=== PATIENT | male | born 1970 | race Caucasian/White ===

== ENCOUNTER 2022-04-21 07:26 | Inpatient (IN) ==
[2022-04-21 07:55] VITALS: BMI 26.1
[2022-04-21] MEDS ORDERED: TORADOL 30 MG VIAL ONE (08:30)
[2022-04-21] MEDS ORDERED: TORADOL 30 MG VIAL IVP ONE (08:31)
--- NOTE | 2022-04-21 08:31 | DR.EXTPAIN ---
HPI Time seen Time Seen by Provider: 04/21/22 08:20 PCP Primary Care Physician: Greg Ferrell HPI Comment HPI Comment: PAIN, SWELLING AND REDNESS RIGHT ELBOW TIMES FIVE DAYS. STARTED AFTER IV WAS PLACE IN AREA. THE IV INFITRATED WELL. Complaint/Symptoms Chief Complaint Doctor Comments: REDNESS AND SWELLING RIGHT ELBOW TIMES 5 DAYS. Chief Complaint:: Was in [place] for hypotension and received an iv was inserted in right in er that was started to hurt saturday night and told staff nurse that it hurt, and when removed it had puss upon removal. Patient was discharged saturday and right ac was jocelin and painful and then saturday the pain increased up entire arm, with chills, diarrhea, reddness to upper arm with a knot. Patient noted after his shower to have green drainage at infected site when wiped with cotton. COVID-19 Coronavirus risk:travel/contact w/high risk person: No Has patient experienced Coronavirus symptoms: No Nurses notes reviewed Nurses Notes Review: Yes Source History Provided: Patient Mode of arrival Mode of Arrival: In Arms Timing Onset of Chief Complaint: 04/16/22 Associated signs and symptoms Associated Signs and Symptoms: Pain and Swelling (REDNESS ELBOW AND ARM.) PMH PMH Past Medical History: Yes Past Medical History: Arthritis, CVA, GERD and Hypertension Past Medical History Comment: Maner Disease, hital hernia Past Surgical History: Yes Surgical History: Cholecystectomy Family History History of Family Medical Conditions: Yes Family Medical History: Diabetes Mellitus and Hypertension Social History Does patient currently use any type of tobacco product: Yes Have you used tobacco products in the last 12 months: Yes Type of Tobacco Use: Cigarettes How many years tobacco product used: 40 Does any household member use tobacco: Yes Alcohol Use: DAILY Do you use any recreational Drugs:: No Lives With: Significant Other Lives Where: Home Travel Risk Coronavirus risk:travel/contact w/high risk person: No Has patient experienced Coronavirus symptoms: No Infectious screening In the last 2 months have you had wt loss of >10#?: NO Have you had fever, night sweats or hemotysis?: No Have you traveled outside the country in the last 6 months?: No Isolation: Contact ROS Review of Systems Constitutional: Fever (AT HOME.); negative Weakness or Fatigue Eyes: No Symptoms Reported ENTM: negative Nose Discharge or Nose Congestion Respiratoy: No Symptoms Reported; negative Moist Cough, Short of Breath or Wheezing Cardiovascular: No Symptoms Reported; negative Chest Pain Gastrointestinal/Abdominal: No Symptoms Reported; negative Abdominal Pain, Diarrhea, Nausea or Vomiting Genitourinary: No Symptoms Reported; negative Dysuria Neurological: No Symptoms Reported; negative Headache, Weakness or Dizziness Musculoskeletal: Arm and Elbow Integumentary: Other (RIGHT ELBOW SWOLLEN AND RED AND TENDERINVOLVING DISTAL ARM AND PROXIMAL FOREARM. AREA IS WARM TO TOUCH.) Hematologic/Lymphatic: No Symptoms Reported; negative Easy Bruising or Swollen Glands (RT AXILLAR NODES NOT ENLARGE OR TENDER.) Endocrine: No Symptoms Reported; negative Increased Thirst or Increased Urine Psychiatric: No Symptoms Reported All Other Systems: Reviewed and Negative PE Vital Signs Vitals: Temperature 97.7 F Pulse Rate 77 Respiratory Rate 20 Blood Pressure [Left Arm] 169/82 Blood Pressure 180/86 O2 Sat by Pulse Oximetry 98 General Limitations: No Limitations General Appearance: Alert and In No Apparent Distress Head Head Exam: Normal Inspection Eyes Eye exam: Normal Appearance ENT ENT Exam: Normal Exam, Normal Oropharynx, Normal External Ear Exam and TM's Normal Bilaterally Neck Neck Exam: Normal Inspection and Trachea Midline; negative Tenderness Chest Chest Inspection: Normal Inspection and Symmetric Chest Wall Rise; negative Tenderness Respiratory Respiratory Exam: negative Accessory Muscle Use, Chest Wall Tenderness or Respiratory Distress Cardiovascular Cardiovascular Exam: Regular Rate, Normal Rhythm and Normal Heart Sounds; negative Systolic Murmur or Diastolic Murmur Abdominal Exam Abdominal Exam: Normal Inspection, Normal Bowel Sounds and Soft; negative Te nderness Extremities Extremities Exam: Tenderness (swelling and tenderness right elbow. skin over elbow warm.) Back Back Exam: Normal Inspection and (R) Sciatic Notch Tenderness (LOWER BACK) Neurological Neurological Exam: Alert and Oriented X3; negative Motor Sensory Deficit Psychiatric Psychiatric Exam: Normal Affect and Normal Mood Skin Skin Exam: Other (SWELLING, REDNESS AND TENDERNESS RIGHT ELBOW.) MDM Differential Diagnosis Differential Diagnosis: Sprain (CELLULITIS RIGHT ELBOW.) COURSE Treatment Treatment: SEE ORDERS DONE WHILE PATIENT WAS IN ER. Consultation Consultation Comments: DISCUSSED PATIENT WITH DR. OLSON AND HE WILL ADMIT PATIENT. Education/Counseling Education/Counseling: Patient Educated On: Diagnosis ROR Labs Reviewed Laboratory Results Reviewed?: Yes Result Diagrams: 04/24/22 06:06 04/23/22 18:43 Laboratory: 04/21/22 09:10 Blood Blood Culture - Preliminary 04/21/22 09:00 Blood Blood Culture - Preliminary WBC 6.6 X10^3/uL (3.6-10.0) 04/21/22 08:25 RBC 3.82 X10^6/uL (4.7-6.0) L 04/21/22 08:25 Hgb 12.8 g/dL (13.5-18.0) L 04/21/22 08:25 Hct 35.8 % (42.0-54.0) L 04/21/22 08:25 MCV 93.7 fL (80.0-100.0) 04/21/22 08:25 MCH 33.6 pg (27.0-34.0) 04/21/22 08:25 MCHC 35.8 g/dL (33.0-35.0) H 04/21/22 08:25 RDW 12.9 % (11.6-16.5) 04/21/22 08:25 Plt Count 177 X10^3/uL (150.0-450.0) 04/21/22 08:25 MPV 8.4 fL (7.4-11.0) 04/21/22 08:25 Neut % (Auto) 75.9 % (42.0-75.0) H 04/21/22 08:25 Lymph % (Auto) 11.8 % (21.0-51.0) L 04/21/22 08:25 [place] % (Auto) 10.7 % (0.0-13.0) 04/21/22 08:25 Eos % (Auto) 1.1 % (0.9-2.9) 04/21/22 08:25 Baso % (Auto) 0.5 % (0.2-1.0) 04/21/22 08:25 Neut # (Auto) 5.0 x10^3/uL (2.2-4.8) H 04/21/22 08:25 Lymph # (Auto) 0.8 X10^3/uL (1.3-2.9) L 04/21/22 08:25 [place] # (Auto) 0.7 x10^3/uL (0.3-0.8) 04/21/22 08:25 Eos # (Auto) 0.1 x10^3/uL (0.0-0.2) 04/21/22 08:25 Baso # (Auto) 0.0 X10^3/uL (0.0-0.1) 04/21/22 08:25 Absolute Nucleated RBC 0.1 /100WBC 04/21/22 08:25 PT 16.4 SECONDS (11.8-14.3) 04/21/22 08:25 INR Target Range - 04/21/22 08:25 INR 1.37 (0.8-1.3) H 04/21/22 08:25 APTT 28.4 SECONDS (22.9-36.5) 04/21/22 08:25 PTT Comment - 04/21/22 08:25 Sodium 138 mmol/L (136-145) 04/21/22 08:25 Corrected Sodium TNP 04/21/22 08:25 Potassium 3.9 mmol/L (3.5-5.1) 04/21/22 08:25 Chloride 102 mmol/L (98-107) 04/21/22 08:25 Carbon Dioxide 26.1 mmol/L (21-32) 04/21/22 08:25 BUN 15 mg/dL (7-18) 04/21/22 08:25 Creatinine 1.13 mg/dL (0.70-1.30) 04/21/22 08:25 Est GFR (MDRD) Af Amer > 60 (>60) 04/21/22 08:25 Est GFR (MDRD) Non-Af > 60 (>60) 04/21/22 08:25 Glucose 104 mg/dL (65-99) H 04/21/22 08:25 Calcium 9.0 mg/dL (8.5-10.1) 04/21/22 08:25 Corrected Calcium TNP 04/21/22 08:25 Total Bilirubin 0.60 mg/dL (0.2-1.0) 04/21/22 08:25 AST 28 Units/L (15-37) 04/21/22 08:25 ALT 40 Units/L (12-78) 04/21/22 08:25 Alkaline Phosphatase 79 Units/L (46-116) 04/21/22 08:25 Total Protein 7.1 g/dL (6.4-8.2) 04/21/22 08:25 Albumin 3.7 g/dL (3.4-5.0) 04/21/22 08:25 Globulin 3.4 g/dL (2.5-4.5) 04/21/22 08:25 Albumin/Globulin Ratio 1.1 Ratio (1.1-2.1) 04/21/22 08:25 Specimen Type Clean catch urine 04/21/22 08:35 Urine Color Chana (YELLOW) 04/21/22 08:35 Urine Appearance Slightly hazy (CLEAR) 04/21/22 08:35 Urine pH 6.5 (5.0 - 8.0) 04/21/22 08:35 Ur Specific [place] 1.015 (1.000-1.030) 04/21/22 08:35 Urine Protein 2+ (NEGATIVE) 04/21/22 08:35 Urine Glucose (UA) Negative (NEGATIVE) 04/21/22 08:35 Urine Ketones 1+ (NEGATIVE) 04/21/22 08:35 Urine Blood 2+ (NEGATIVE) 04/21/22 08:35 Urine Nitrite Negative (NEGATIVE) 04/21/22 08:35 Urine Bilirubin 1+ (NEGATIVE) 04/21/22 08:35 Urine Urobilinogen 2+ (NORMAL) 04/21/22 08:35 Ur Leukocyte Esterase 1+ (NEGATIVE) 04/21/22 08:35 Urine RBC 0-2 /HPF (0-3) 04/21/22 08:35 Urine WBC 0-2 /HPF (0-5) 04/21/22 08:35 Ur Squamous Epith Cells Few /HPF (NEGATIVE) 04/21/22 08:35 Urine Bacteria Trace /HPF (NEGATIVE) 04/21/22 08:35 Urine Mucus Few /HPF (NEGATIVE) 04/21/22 08:35 Ur Culture Indicated? No/not indicated 04/21/22 08:35 XRAY XRAY Interpreted by: Radiologist (REPORT VENOUS DOPPLER NOTED.) Opioid Opioid Risk Tool Age (Farrukh box if 16-45): No History of Preadolescent Sexual Abuse: No Total: 0 Total Score Risk Category: Low Risk Copyright: Jovani ZAIDI predicting aberrant behaviors Discharge Plan Diagnosis Discharge Problem: Cellulitis of right elbow, Acute cephalic vein thrombosis Discharge Plan Patient Disposition: 09 ADMITTED INPATIENT Condition: Stable
[2022-04-21] MEDS ORDERED: NS 1,000 ML IV 1,000 ML ONE (08:43)
[2022-04-21 08:44] LABS: BASOPHILS % (AUTO) 0.5 % (0.2-1.0); EOSINOPHILS # (AUTO) 0.1 x10^3/uL (0.0-0.2); EOSINOPHILS % (AUTO) 1.1 % (0.9-2.9); HEMATOCRIT 35.8 % (42.0-54.0); HEMOGLOBIN 12.8 g/dL (13.5-18.0); LYMPHOCYTES # (AUTO) 0.8 X10^3/uL (1.3-2.9); LYMPHOCYTES % (AUTO) 11.8 % (21.0-51.0); MEAN CORPUSCULAR HEMOGLOBIN 33.6 pg (27.0-34.0); MEAN CORPUSCULAR HGB CONC 35.8 g/dL (33.0-35.0); MEAN CORPUSCULAR VOLUME 93.7 fL (80.0-100.0); MEAN PLATELET VOLUME 8.4 fL (7.4-11.0); MONOCYTES # (AUTO) 0.7 x10^3/uL (0.3-0.8); MONOCYTES % (AUTO) 10.7 % (0.0-13.0); NEUTROPHILS % (AUTO) 75.9 % (42.0-75.0); RED BLOOD COUNT 3.82 X10^6/uL (4.7-6.0); RED CELL DISTRIBUTION WIDTH 12.9 % (11.6-16.5); WHITE BLOOD COUNT 6.6 X10^3/uL (3.6-10.0)
[2022-04-21] MEDS: NS 1,000 ML IV 1,000 ML IV SCH ×2 (08:50→18:10)
[2022-04-21 08:56] LABS: BILIRUBIN,URINE 1+ (NEGATIVE); BLOOD/HEMOGLOBIN,URINE 2+ (NEGATIVE); GLUCOSE, URINE NEGATIVE (NEGATIVE); KETONES,URINE 1+ (NEGATIVE); LEUKOCYTE ESTERASE ,URINE 1+ (NEGATIVE); NITRITES,URINE NEGATIVE (NEGATIVE); PH,URINE 6.5 (5.0 - 8.0); PROTEIN,URINE 2+ (NEGATIVE); UROBILINOGEN,URINE 2+ (NORMAL)
[2022-04-21 08:57] LABS: ALANINE AMINOTRANSFERASE 40 Units/L (12-78); ALBUMIN 3.7 g/dL (3.4-5.0); ALKALINE PHOSPHATASE 79 Units/L (46-116); ASPARTATE AMINO TRANSFERASE 28 Units/L (15-37); BLOOD UREA NITROGEN 15 mg/dL (7-18); CARBON DIOXIDE 26.1 mmol/L (21-32); CHLORIDE 102 mmol/L (98-107); CREATININE 1.13 mg/dL (0.70-1.30); SODIUM 138 mmol/L (136-145); TOTAL PROTEIN 7.1 g/dL (6.4-8.2); eGFR NON BLACK RACES > 60 (>60)
[2022-04-21 09:14] LABS: APPEARANCE,URINE SLIGHTLY HAZY (CLEAR); COLOR,URINE AMBER (YELLOW)
[2022-04-21 09:15] LABS: BACTERIA,URINE TRACE /HPF (NEGATIVE); RBC,URINE 0-2 /HPF (0-3); SQUAMOUS EPITHELIAL CELL,UR FEW /HPF (NEGATIVE)
[2022-04-21] MEDS ORDERED: VANCOMYCIN IV *PREMIX 1 G/200 ML BAG 1 G/200 ML PIGGYBACK IV SCH (10:38)
[2022-04-21 10:51] LABS: INR 1.37 (0.8-1.3)
--- NOTE | 2022-04-21 10:53 | VAS ---
HISTORY: Extremity pain, swelling, and edemaStudy: [Right] upper extremity Doppler venous ultrasound.Comparison: [none].TECHNIQUE: Multiple phillips scale and color flow Doppler images of the deep venous system were obtained of the right upper extremity.FINDINGS: The deep venous system of the [right] upper extremity evaluated from the level of the internal jugular vein through the [radial and ulnar veins]. Normal color flow and augmentation can be observed. In addition, normal compression is seen throughout the upper extremity deep venous system. There is a residual thrombus seen within the right cephalic vein in the mid/distal humerus in the region of concern.IMPRESSION:The deep venous system of the [right] upper extremity evaluated from the level of the internal jugular vein through the [radial and ulnar veins]. Normal color flow and augmentation can be observed. In addition, normal compression is seen throughout the upper extremity deep venous system. There is a residual superficial venous thrombus seen within the right cephalic vein in the mid/distal humerus in the region of concern.Electronically signed by: MAREN DÍAZ III (Apr 21, 2022 10:51:20)
[2022-04-21] MEDS ORDERED: HEPARIN SODIUM IN D5W 25,000 UNITS/500 ML BAG ONE (11:02)
[2022-04-21] MEDS ORDERED: VANCOMYCIN HCL ONE (11:02)
[2022-04-21] MEDS ORDERED: VANCOMYCIN IV *PREMIX 1 G/200 ML BAG 1 G/200 ML PIGGYBACK IV ONE (11:06)
[2022-04-21] MEDS ORDERED: NORCO 10/325 TAB ONE (11:18)
[2022-04-21] MEDS: NORCO 10/325 TAB PO PRN ×3 (11:22→21:33)
[2022-04-21] MEDS ORDERED: HEPARIN SODIUM INJ 5000 UNITS IVP ONE ×2 (11:47→16:56)
[2022-04-21] MEDS ORDERED: HEPARIN SODIUM INJ 5000 UNITS ONE ×2 (11:49→17:00)
[2022-04-21] MEDS: HEPARIN SODIUM IN D5W 25,000 UNITS/500 ML BAG IV PRN (11:56)
[2022-04-21] MEDS ORDERED: ZOFRAN TAB 4 MG PO PRN (12:21)
[2022-04-21] MEDS: TORADOL 30 MG VIAL IVP PRN ×2 (17:30→23:23)
[2022-04-21] MEDS: VANCOMYCIN IV *PREMIX 1 G/200 ML BAG 1 G/200 ML PIGGYBACK IV SCH (21:28)
[2022-04-22] MEDS: NORCO 10/325 TAB PO PRN ×5 (02:38→23:50)
[2022-04-22] MEDS: TYLENOL 325 MG TAB PO PRN ×2 (03:26→19:37)
[2022-04-22] MEDS: NS 1,000 ML IV 1,000 ML IV SCH ×3 (04:17→16:25)
[2022-04-22] MEDS: VANCOMYCIN IV *PREMIX 1 G/200 ML BAG 1 G/200 ML PIGGYBACK IV SCH ×3 (04:17→19:37)
[2022-04-22] MEDS: HEPARIN SODIUM IN D5W 25,000 UNITS/500 ML BAG IV PRN ×2 (05:02→22:20)
[2022-04-22 05:03] LABS: ALANINE AMINOTRANSFERASE 29 Units/L (12-78); ALBUMIN 2.7 g/dL (3.4-5.0); ALKALINE PHOSPHATASE 64 Units/L (46-116); ASPARTATE AMINO TRANSFERASE 20 Units/L (15-37); BLOOD UREA NITROGEN 17 mg/dL (7-18); CALCIUM 7.5 mg/dL (8.5-10.1); CARBON DIOXIDE 21.9 mmol/L (21-32); CHLORIDE 103 mmol/L (98-107); COR CA(FOR HYPOALB) 8.5 mg/dL (8.5-10.1); CREATININE 1.34 mg/dL (0.70-1.30); SODIUM 135 mmol/L (136-145); TOTAL PROTEIN 5.7 g/dL (6.4-8.2); eGFR NON BLACK RACES 59 (>60)
[2022-04-22] MEDS: TORADOL 30 MG VIAL IVP PRN ×4 (05:07→22:12)
[2022-04-22 05:19] LABS: BASOPHILS % (AUTO) 0.5 % (0.2-1.0); EOSINOPHILS % (AUTO) 0.1 % (0.9-2.9); HEMATOCRIT 28.7 % (42.0-54.0); HEMOGLOBIN 10.4 g/dL (13.5-18.0); LYMPHOCYTES # (AUTO) 0.4 X10^3/uL (1.3-2.9); MEAN CORPUSCULAR HEMOGLOBIN 33.7 pg (27.0-34.0); MEAN CORPUSCULAR HGB CONC 36.3 g/dL (33.0-35.0); MEAN CORPUSCULAR VOLUME 92.7 fL (80.0-100.0); MEAN PLATELET VOLUME 8.8 fL (7.4-11.0); MONOCYTES # (AUTO) 0.4 x10^3/uL (0.3-0.8); MONOCYTES % (AUTO) 7.2 % (0.0-13.0); NEUTROPHILS # (AUTO) 4.5 x10^3/uL (2.2-4.8); NEUTROPHILS % (AUTO) 84.2 % (42.0-75.0); RED CELL DISTRIBUTION WIDTH 13.1 % (11.6-16.5); WHITE BLOOD COUNT 5.3 X10^3/uL (3.6-10.0)
[2022-04-22] MEDS ORDERED: POTASSIUM CHL 40 MEQ/NS 0.45% 500 ML IV PRN (05:20)
[2022-04-22] MEDS ORDERED: POTASSIUM CHLORIDE LIQ 20 MEQ UDC PO PRN (05:20)
[2022-04-22] MEDS ORDERED: POTASSIUM CHL 60 MEQ/NS 0.45% 500 ML IV PRN (05:20)
[2022-04-22] MEDS ORDERED: KLOR-CON PO PRN (05:20)
[2022-04-22] MEDS ORDERED: MICRO K EXTEN CAP 10 MEQ PO PRN (05:20)
[2022-04-22] MEDS ORDERED: K-RIDER 10 MEQ/NS 100 ML 10 MEQ/100 ML BAG IV PRN (05:20)
[2022-04-22] MEDS: MAGNESIUM SULFATE 1 GRAM/100 mL PREMIX 1 G/100 ML BAG IV PRN ×5 (06:14→20:49)
--- NOTE | 2022-04-22 11:19 | DR.H&P ---
H&P History & Physical for Day of: H&P Date: 04/21/22 Chief Complaint Chief Complaint: Right elbow swelling and redness Allergies Allergies Allergy/AdvReac Type Severity Reaction Status Date / Time No Known Drug Allergies Allergy Verified 12/03/18 08:47 History of Present Illness History of Present Illness: This is a 52-year-old white male who is a patient of Dr. Heri Ferrell. He went to the [facility] emergency department earlier this week on Saturday for a swollen right elbow with redness and pain. He was treated for cellulitis. He reported that he was there for a few nights and they took the IV out Saturday night and pus came out. He reported that the pus was green in color and was discharged home later that day. Since then he has been having increased right elbow pain with swelling and tenderness. He presented to the emergency department this morning [facility] for worsening pain of the right elbow with increasing redness. Ultrasound was done and showed a superficial cephalic vein thrombosis and because of this we elected to go ahead and admitting for treatment with IV heparin and IV vancomycin. White blood cell count was normal on arrival. Past Medical History Past Medical History: Arthritis, CVA, GERD and Hypertension Past Surgical History Surgical History: Cholecystectomy and Other Family History Family Medical History: Diabetes Mellitus, Cancer, [place] and Hypertension Social History Does patient currently use any type of tobacco product: Yes Have you used tobacco products in the last 12 months: Yes Type of Tobacco Use: Cigarettes How many years tobacco product used: 40 Does any household member use tobacco: Yes Alcohol Use: Occasionally Drug Use: None Medications Home Medications: No Known Drug Allergies Allergy (Verified 12/03/18 08:47) CONTINUE taking the following medications albuterol sulfate 90 mcg/actuation aerosol inhaler 2 inh inhalation Q4H PRN 04/21/22 [History] allopurinol 100 mg tablet 100 mg PO QDAY 04/21/22 [History] aspirin 325 mg tablet,delayed release 325 mg PO QDAY 04/21/22 [History] atorvastatin 40 mg tablet 40 mg PO QDAY 04/21/22 [History] gabapentin 300 mg capsule 300 mg PO BID 04/21/22 [History] hydrocodone 5 mg-acetaminophen 325 mg tablet 1 tab PO QID PRN 04/21/22 [History] lisinopril 10 mg tablet 10 mg PO QDAY 04/21/22 [History] meclizine 25 mg tablet 25 mg PO TID PRN 04/21/22 [History] pantoprazole 40 mg tablet,delayed release 40 mg PO BID 04/21/22 [History] tamsulosin 0.4 mg capsule 0.4 mg PO QDAY 04/21/22 [History] tizanidine 2 mg tablet 2 mg PO BID 04/21/22 [History] topiramate 50 mg tablet 50 mg PO HS 04/21/22 [History] Labs Result Diagrams: 04/22/22 04:30 04/22/22 08:25 Labs: 04/21/22 09:10 Blood Blood Culture - Preliminary 04/21/22 09:00 Blood Blood Culture - Preliminary Laboratory WBC 5.3 X10^3/uL (3.6-10.0) 04/22/22 04:30 RBC 3.10 X10^6/uL (4.7-6.0) L 04/22/22 04:30 Hgb 10.4 g/dL (13.5-18.0) L D 04/22/22 04:30 Hct 28.7 % (42.0-54.0) L 04/22/22 04:30 MCV 92.7 fL (80.0-100.0) 04/22/22 04:30 MCH 33.7 pg (27.0-34.0) 04/22/22 04:30 MCHC 36.3 g/dL (33.0-35.0) H 04/22/22 04:30 RDW 13.1 % (11.6-16.5) 04/22/22 04:30 Plt Count 143 X10^3/uL (150.0-450.0) L 04/22/22 04:30 MPV 8.8 fL (7.4-11.0) 04/22/22 04:30 Neut % (Auto) 84.2 % (42.0-75.0) H 04/22/22 04:30 Lymph % (Auto) 8.0 % (21.0-51.0) L 04/22/22 04:30 [place] % (Auto) 7.2 % (0.0-13.0) 04/22/22 04:30 Eos % (Auto) 0.1 % (0.9-2.9) L 04/22/22 04:30 Baso % (Auto) 0.5 % (0.2-1.0) 04/22/22 04:30 Neut # (Auto) 4.5 x10^3/uL (2.2-4.8) 04/22/22 04:30 Lymph # (Auto) 0.4 X10^3/uL (1.3-2.9) L 04/22/22 04:30 [place] # (Auto) 0.4 x10^3/uL (0.3-0.8) 04/22/22 04:30 Eos # (Auto) 0.0 x10^3/uL (0.0-0.2) 04/22/22 04:30 Baso # (Auto) 0.0 X10^3/uL (0.0-0.1) 04/22/22 04:30 Absolute Nucleated RBC 0.0 /100WBC 04/22/22 04:30 PT 16.4 SECONDS (11.8-14.3) 04/21/22 08:25 INR Target Range - 04/21/22 08:25 INR 1.37 (0.8-1.3) H 04/21/22 08:25 APTT 74.8 SECONDS (22.9-36.5) H 04/22/22 04:30 PTT Comment - 04/22/22 04:30 Sodium 135 mmol/L (136-145) L 04/22/22 04:30 Corrected Sodium TNP 04/22/22 04:30 Potassium 3.0 mmol/L (3.5-5.1) L 04/22/22 08:25 Chloride 103 mmol/L (98-107) 04/22/22 04:30 Carbon Dioxide 21.9 mmol/L (21-32) 04/22/22 04:30 BUN 17 mg/dL (7-18) 04/22/22 04:30 Creatinine 1.34 mg/dL (0.70-1.30) H 04/22/22 04:30 Est GFR (MDRD) Af Amer > 60 (>60) 04/22/22 04:30 Est GFR (MDRD) Non-Af 59 (>60) 04/22/22 04:30 Glucose 110 mg/dL (65-99) H 04/22/22 04:30 Calcium 7.5 mg/dL (8.5-10.1) L 04/22/22 04:30 Corrected Calcium 8.5 mg/dL (8.5-10.1) 04/22/22 04:30 Magnesium 1.0 mg/dL (2.0-2.9) L 04/22/22 04:30 Total Bilirubin 0.50 mg/dL (0.2-1.0) 04/22/22 04:30 AST 20 Units/L (15-37) 04/22/22 04:30 ALT 29 Units/L (12-78) 04/22/22 04:30 Alkaline Phosphatase 64 Units/L (46-116) 04/22/22 04:30 Total Protein 5.7 g/dL (6.4-8.2) L 04/22/22 04:30 Albumin 2.7 g/dL (3.4-5.0) L 04/22/22 04:30 Globulin 3.0 g/dL (2.5-4.5) 04/22/22 04:30 Albumin/Globulin Ratio 0.9 Ratio (1.1-2.1) L 04/22/22 04:30 Specimen Type Clean catch urine 04/21/22 08:35 Urine Color [place]ana (YELLOW) 04/21/22 08:35 Urine Appearance Slightly hazy (CLEAR) 04/21/22 08:35 Urine pH 6.5 (5.0 - 8.0) 04/21/22 08:35 Ur Specific [place] 1.015 (1.000-1.030) 04/21/22 08:35 Urine Protein 2+ (NEGATIVE) 04/21/22 08:35 Urine Glucose (UA) Negative (NEGATIVE) 04/21/22 08:35 Urine Ketones 1+ (NEGATIVE) 04/21/22 08:35 Urine Blood 2+ (NEGATIVE) 04/21/22 08:35 Urine Nitrite Negative (NEGATIVE) 04/21/22 08:35 Urine Bilirubin 1+ (NEGATIVE) 04/21/22 08:35 Urine Urobilinogen 2+ (NORMAL) 04/21/22 08:35 Ur Leukocyte Esterase 1+ (NEGATIVE) 04/21/22 08:35 Urine RBC 0-2 /HPF (0-3) 04/21/22 08:35 Urine WBC 0-2 /HPF (0-5) 04/21/22 08:35 Ur Squamous Epith Cells Few /HPF (NEGATIVE) 04/21/22 08:35 Urine Bacteria Trace /HPF (NEGATIVE) 04/21/22 08:35 Urine Mucus Few /HPF (NEGATIVE) 04/21/22 08:35 Ur Culture Indicated? No/not indicated 04/21/22 08:35 Review of Systems Constitutional: Fever and Chills Eyes: No Symptoms Reported ENT: No Symptoms Reported Respiratory: No Symptoms Reported Cardiovascular: No Symptoms Reported Gastrointestinal: No Symptoms Reported Genitourinary: No Symptoms Reported Musculoskeletal: Arm Pain Skin: Other (Right elbow redness, warmth and discomfort) Neurological: No Symptoms Reported Physical Exam Vital Signs: Temperature 98.8 F Pulse Rate [Left Brachial] 84 Pulse Rate 77 Respiratory Rate 20 Blood Pressure [Left Arm] 110/58 Blood Pressure 180/86 O2 Sat by Pulse Oximetry 97 Oriented: Normal, Time, Person and Place Eyes: Normal Ear: Normal Nose: Normal Throat: Normal Respiratory: Clear Throughout Cardiovascular: Normal Auscultation: Bowel Sounds: Normal Palpation: Normal Tenderness: Normal Skin: Red, Tender and Hot Musculoskeletal: Normal Psychiatric: Anxiety Mood Description: Calm Affect: Normal Speech Pattern: Clear Assessment/Plan (1) Acute cephalic vein thrombosis: Status: Acute Plan: Heparin drip per protocol (2) Cellulitis of right elbow: Status: Acute Plan: Vancomycin started in the ER we will continue that at this time. (3) Hypertension: Status: Chronic Plan: Resume patient's home blood pressure medications. (4) Anxiety: Status: Chronic Plan: Monitor patient's anxiety. Review H&P Reviewed: Yes Patient was examined?: Yes
--- NOTE | 2022-04-22 11:21 | PCM.PROG ---
Progress Note Progress Note for Day of Date of Exam: 04/22/22 Subjective Subjective: Patient continues to have right shoulder pain and tenderness. It is still mildly red and warm on palpation. He had no acute problems this admission yesterday morning. He had no problems overnight either. I did order the patient some hydrocodone yesterday for increased right elbow pain from the thrombosis and cellulitis that he has. He reports that is controlled this morning. White blood cell count remains normal this morning at 5300. Potassium is noted to be low this morning 3.0. We will replace with potassium replacement protocol. He did have some fever overnight and blood cultures x2 were drawn and are pending today. Past Medical Family Social History Allergies: Allergies No Known Drug Allergies Allergy (Verified 12/03/18 08:47) Review of Systems ROS: No change since H&P Vital Signs and I&O's Vital Signs: Temperature 98.8 F Pulse Rate [Left Brachial] 84 Pulse Rate 77 Respiratory Rate 20 Blood Pressure [Left Arm] 110/58 Blood Pressure 180/86 O2 Sat by Pulse Oximetry 97 Intake and Output: Intake & Output 04/19/22 04/20/22 04/21/22 04/22/22 11:59 11:59 11:59 11:59 Intake Total 4360 / 4360 Balance 4360 / 4360 Physical Exam Oriented: Normal, Time, Person and Place Eyes: Normal Ear: Normal Nose: Normal Throat: Normal Respiratory: Normal Cardiovascular: Normal Auscultation: Bowel Sounds: Normal Tenderness: Normal Skin: Red, Tender and Hot Musculoskeletal: Normal Psychiatric: Anxiety Mood Description: Calm Affect: Normal Speech Pattern: Clear Laboratory and Diagnostics Result Diagrams: 04/22/22 04:30 04/22/22 08:25 Labs: 04/21/22 09:10 Blood Blood Culture - Preliminary 04/21/22 09:00 Blood Blood Culture - Preliminary Laboratory WBC 5.3 X10^3/uL (3.6-10.0) 04/22/22 04:30 RBC 3.10 X10^6/uL (4.7-6.0) L 04/22/22 04:30 Hgb 10.4 g/dL (13.5-18.0) L D 04/22/22 04:30 Hct 28.7 % (42.0-54.0) L 04/22/22 04:30 MCV 92.7 fL (80.0-100.0) 04/22/22 04:30 MCH 33.7 pg (27.0-34.0) 04/22/22 04:30 MCHC 36.3 g/dL (33.0-35.0) H 04/22/22 04:30 RDW 13.1 % (11.6-16.5) 04/22/22 04:30 Plt Count 143 X10^3/uL (150.0-450.0) L 04/22/22 04:30 MPV 8.8 fL (7.4-11.0) 04/22/22 04:30 Neut % (Auto) 84.2 % (42.0-75.0) H 04/22/22 04:30 Lymph % (Auto) 8.0 % (21.0-51.0) L 04/22/22 04:30 [place] % (Auto) 7.2 % (0.0-13.0) 04/22/22 04:30 Eos % (Auto) 0.1 % (0.9-2.9) L 04/22/22 04:30 Baso % (Auto) 0.5 % (0.2-1.0) 04/22/22 04:30 Neut # (Auto) 4.5 x10^3/uL (2.2-4.8) 04/22/22 04:30 Lymph # (Auto) 0.4 X10^3/uL (1.3-2.9) L 04/22/22 04:30 [place] # (Auto) 0.4 x10^3/uL (0.3-0.8) 04/22/22 04:30 Eos # (Auto) 0.0 x10^3/uL (0.0-0.2) 04/22/22 04:30 Baso # (Auto) 0.0 X10^3/uL (0.0-0.1) 04/22/22 04:30 Absolute Nucleated RBC 0.0 /100WBC 04/22/22 04:30 PT 16.4 SECONDS (11.8-14.3) 04/21/22 08:25 INR Target Range - 04/21/22 08:25 INR 1.37 (0.8-1.3) H 04/21/22 08:25 APTT 74.8 SECONDS (22.9-36.5) H 04/22/22 04:30 PTT Comment - 04/22/22 04:30 Sodium 135 mmol/L (136-145) L 04/22/22 04:30 Corrected Sodium TNP 04/22/22 04:30 Potassium 3.0 mmol/L (3.5-5.1) L 04/22/22 08:25 Chloride 103 mmol/L (98-107) 04/22/22 04:30 Carbon Dioxide 21.9 mmol/L (21-32) 04/22/22 04:30 BUN 17 mg/dL (7-18) 04/22/22 04:30 Creatinine 1.34 mg/dL (0.70-1.30) H 04/22/22 04:30 Est GFR (MDRD) Af Amer > 60 (>60) 04/22/22 04:30 Est GFR (MDRD) Non-Af 59 (>60) 04/22/22 04:30 Glucose 110 mg/dL (65-99) H 04/22/22 04:30 Calcium 7.5 mg/dL (8.5-10.1) L 04/22/22 04:30 Corrected Calcium 8.5 mg/dL (8.5-10.1) 04/22/22 04:30 Magnesium 1.0 mg/dL (2.0-2.9) L 04/22/22 04:30 Total Bilirubin 0.50 mg/dL (0.2-1.0) 04/22/22 04:30 AST 20 Units/L (15-37) 04/22/22 04:30 ALT 29 Units/L (12-78) 04/22/22 04:30 Alkaline Phosphatase 64 Units/L (46-116) 04/22/22 04:30 Total Protein 5.7 g/dL (6.4-8.2) L 04/22/22 04:30 Albumin 2.7 g/dL (3.4-5.0) L 04/22/22 04:30 Globulin 3.0 g/dL (2.5-4.5) 04/22/22 04:30 Albumin/Globulin Ratio 0.9 Ratio (1.1-2.1) L 04/22/22 04:30 Specimen Type Clean catch urine 04/21/22 08:35 Urine Color [place] (YELLOW) 04/21/22 08:35 Urine Appearance Slightly hazy (CLEAR) 04/21/22 08:35 Urine pH 6.5 (5.0 - 8.0) 04/21/22 08:35 Ur Specific [place] 1.015 (1.000-1.030) 04/21/22 08:35 Urine Protein 2+ (NEGATIVE) 04/21/22 08:35 Urine Glucose (UA) Negative (NEGATIVE) 04/21/22 08:35 Urine Ketones 1+ (NEGATIVE) 04/21/22 08:35 Urine Blood 2+ (NEGATIVE) 04/21/22 08:35 Urine Nitrite Negative (NEGATIVE) 04/21/22 08:35 Urine Bilirubin 1+ (NEGATIVE) 04/21/22 08:35 Urine Urobilinogen 2+ (NORMAL) 04/21/22 08:35 Ur Leukocyte Esterase 1+ (NEGATIVE) 04/21/22 08:35 Urine RBC 0-2 /HPF (0-3) 04/21/22 08:35 Urine WBC 0-2 /HPF (0-5) 04/21/22 08:35 Ur Squamous Epith Cells Few /HPF (NEGATIVE) 04/21/22 08:35 Urine Bacteria Trace /HPF (NEGATIVE) 04/21/22 08:35 Urine Mucus Few /HPF (NEGATIVE) 04/21/22 08:35 Ur Culture Indicated? No/not indicated 04/21/22 08:35 Radiology Reviewed: Yes Plan (1) Acute cephalic vein thrombosis: Status: Acute Plan: Heparin drip per protocol (2) Cellulitis of right elbow: Status: Acute Plan: Vancomycin started in the ER we will continue that at this time. (3) Hypertension: Status: Chronic Plan: Resume patient's home blood pressure medications. (4) Anxiety: Status: Chronic Plan: Monitor patient's anxiety. (5) Hypokalemia: Status: Acute Plan: Potassium replacement protocol.
[2022-04-22 12:01] LABS: CREATININE 1.4 mg/dL (0.70-1.30)
[2022-04-22] MEDS: PHARMACY COMMENT IV SCH (12:54)
[2022-04-22] MEDS: RESTORIL CAP 15 MG PO PRN (20:49)
[2022-04-23] MEDS: NS 1,000 ML IV 1,000 ML IV SCH ×4 (00:55→17:39)
[2022-04-23] MEDS: VANCOMYCIN IV *PREMIX 1 G/200 ML BAG 1 G/200 ML PIGGYBACK IV SCH ×3 (04:07→20:27)
[2022-04-23] MEDS: TORADOL 30 MG VIAL IVP PRN ×4 (04:07→23:00)
[2022-04-23 05:18] LABS: BASOPHILS % (AUTO) 1.2 % (0.2-1.0); EOSINOPHILS % (AUTO) 0.8 % (0.9-2.9); HEMATOCRIT 27.2 % (42.0-54.0); HEMOGLOBIN 9.7 g/dL (13.5-18.0); LYMPHOCYTES # (AUTO) 0.6 X10^3/uL (1.3-2.9); LYMPHOCYTES % (AUTO) 14.5 % (21.0-51.0); MEAN CORPUSCULAR HEMOGLOBIN 33.3 pg (27.0-34.0); MEAN CORPUSCULAR HGB CONC 35.6 g/dL (33.0-35.0); MEAN CORPUSCULAR VOLUME 93.4 fL (80.0-100.0); MEAN PLATELET VOLUME 8.7 fL (7.4-11.0); MONOCYTES # (AUTO) 0.4 x10^3/uL (0.3-0.8); MONOCYTES % (AUTO) 10.1 % (0.0-13.0); NEUTROPHILS # (AUTO) 2.9 x10^3/uL (2.2-4.8); NEUTROPHILS % (AUTO) 73.4 % (42.0-75.0); RED BLOOD COUNT 2.91 X10^6/uL (4.7-6.0); RED CELL DISTRIBUTION WIDTH 13.5 % (11.6-16.5)
[2022-04-23 05:35] LABS: ALANINE AMINOTRANSFERASE 30 Units/L (12-78); ALBUMIN 2.5 g/dL (3.4-5.0); ALKALINE PHOSPHATASE 65 Units/L (46-116); ASPARTATE AMINO TRANSFERASE 20 Units/L (15-37); BLOOD UREA NITROGEN 12 mg/dL (7-18); CALCIUM 7.6 mg/dL (8.5-10.1); CARBON DIOXIDE 18.6 mmol/L (21-32); CHLORIDE 102 mmol/L (98-107); COR CA(FOR HYPOALB) 8.8 mg/dL (8.5-10.1); CREATININE 1.12 mg/dL (0.70-1.30); MAGNESIUM 2.1 mg/dL (2.0-2.9); SODIUM 134 mmol/L (136-145); TOTAL PROTEIN 5.5 g/dL (6.4-8.2); eGFR NON BLACK RACES > 60 (>60)
[2022-04-23] MEDS: K-DUR TAB 20 MEQ PO PRN ×2 (05:47→20:27)
[2022-04-23] MEDS: NORCO 10/325 TAB PO PRN ×2 (05:48→12:36)
[2022-04-23] MEDS: INVanz INJ 1 GRAM VIAL 1 G in NS 100 ML IV 100 ML IV SCH (10:06)
[2022-04-23] MEDS: XANAX PO PRN ×2 (10:06→20:28)
[2022-04-23] MEDS: PHARMACY COMMENT IV SCH (12:35)
[2022-04-23] MEDS: HEPARIN SODIUM IN D5W 25,000 UNITS/500 ML BAG IV PRN (14:13)
[2022-04-23] MEDS: PROTONIX INJ 40 MG VIAL IVP SCH (17:02)
[2022-04-23 19:10] LABS: CREATININE 1.08 mg/dL (0.70-1.30); VANCOMYCIN,TROUGH 19.3 ug/mL (15-20)
[2022-04-23] MEDS: NEURONTIN CAP 300 MG PO SCH (20:27)
[2022-04-23] MEDS: RESTORIL CAP 15 MG PO PRN (20:28)
[2022-04-24] MEDS: NS 1,000 ML IV 1,000 ML IV SCH ×5 (00:08→16:38)
[2022-04-24] MEDS: NORCO 10/325 TAB PO PRN ×4 (00:26→21:02)
[2022-04-24] MEDS: VANCOMYCIN IV *PREMIX 1 G/200 ML BAG 1 G/200 ML PIGGYBACK IV SCH ×3 (03:07→20:26)
[2022-04-24] MEDS: HEPARIN SODIUM IN D5W 25,000 UNITS/500 ML BAG IV PRN ×2 (03:21→16:33)
[2022-04-24 06:18] LABS: BASOPHILS % (AUTO) 0.7 % (0.2-1.0); EOSINOPHILS # (AUTO) 0.1 x10^3/uL (0.0-0.2); EOSINOPHILS % (AUTO) 1.3 % (0.9-2.9); HEMATOCRIT 27.5 % (42.0-54.0); HEMOGLOBIN 9.9 g/dL (13.5-18.0); LYMPHOCYTES # (AUTO) 0.6 X10^3/uL (1.3-2.9); LYMPHOCYTES % (AUTO) 15.2 % (21.0-51.0); MEAN CORPUSCULAR HEMOGLOBIN 33.7 pg (27.0-34.0); MEAN CORPUSCULAR HGB CONC 35.9 g/dL (33.0-35.0); MEAN PLATELET VOLUME 8.2 fL (7.4-11.0); MONOCYTES # (AUTO) 0.4 x10^3/uL (0.3-0.8); MONOCYTES % (AUTO) 10.2 % (0.0-13.0); NEUTROPHILS % (AUTO) 72.6 % (42.0-75.0); RED BLOOD COUNT 2.92 X10^6/uL (4.7-6.0); RED CELL DISTRIBUTION WIDTH 13.2 % (11.6-16.5); WHITE BLOOD COUNT 4.2 X10^3/uL (3.6-10.0)
[2022-04-24 06:24] LABS: ALANINE AMINOTRANSFERASE 26 Units/L (12-78); ALBUMIN 2.4 g/dL (3.4-5.0); ALKALINE PHOSPHATASE 78 Units/L (46-116); ASPARTATE AMINO TRANSFERASE 19 Units/L (15-37); BLOOD UREA NITROGEN 7 mg/dL (7-18); CALCIUM 7.7 mg/dL (8.5-10.1); CARBON DIOXIDE 21.9 mmol/L (21-32); CHLORIDE 105 mmol/L (98-107); CREATININE 0.97 mg/dL (0.70-1.30); SODIUM 135 mmol/L (136-145); TOTAL PROTEIN 5.5 g/dL (6.4-8.2); eGFR NON BLACK RACES > 60 (>60)
[2022-04-24] MEDS: INVanz INJ 1 GRAM VIAL 1 G in NS 100 ML IV 100 ML IV SCH (09:29)
[2022-04-24] MEDS: ZYLOPRIM PO SCH (09:30)
[2022-04-24] MEDS: NEURONTIN CAP 300 MG PO SCH ×2 (09:30→20:27)
[2022-04-24] MEDS: LIPITOR TAB 40 MG PO SCH (09:30)
[2022-04-24] MEDS: ZESTRIL TAB 10 MG PO SCH (09:30)
[2022-04-24] MEDS: PROTONIX INJ 40 MG VIAL IVP SCH (09:31)
[2022-04-24] MEDS: ECOTRIN TAB 325 MG PO SCH (09:33)
[2022-04-24] MEDS: MILK OF MAGNESIA PO SCH ×2 (10:25→21:45)
[2022-04-24] MEDS: MORPHINE SULFATE INJ 2 MG INJ IVP PRN ×3 (10:26→22:30)
[2022-04-24] MEDS: COLACE CAP 100 MG PO SCH ×2 (10:26→21:45)
[2022-04-24] MEDS: XANAX PO PRN ×2 (10:41→20:28)
[2022-04-24] MEDS: PHARMACY COMMENT IV SCH (10:59)
[2022-04-24] MEDS: TYLENOL 325 MG TAB PO PRN (13:04)
[2022-04-24 13:26] LABS: VANCOMYCIN,TROUGH 15.9 ug/mL (15-20)
--- NOTE | 2022-04-24 14:54 | US ---
Ultrasound right elbow nonvascularIndication: Right arm pain and axillary painCOMPARISONNovember 2021 sonogramTECHNIQUEDynamic grayscale and color Doppler imaging through the right upper extremityFINDINGSThere is hypoechoic thrombus filling the right cephalic vein. This is noncompressible and mildly thick-walled.IMPRESSIONRight cephalic vein superficial thrombosis, with wall thickening. Thrombophlebitis possible. Study is limited to the superficial soft tissues. Deep veins are not evaluated.Electronically signed by: CHERYL RODRÍGUEZ (Apr 24, 2022 14:51:56)
[2022-04-24] MEDS: RESTORIL CAP 15 MG PO PRN (20:27)
[2022-04-24] MEDS: K-DUR TAB 20 MEQ PO PRN (20:27)
[2022-04-25] MEDS: NS 1,000 ML IV 1,000 ML IV SCH ×4 (00:11→20:35)
[2022-04-25] MEDS: VANCOMYCIN IV *PREMIX 1 G/200 ML BAG 1 G/200 ML PIGGYBACK IV SCH ×3 (03:15→20:37)
[2022-04-25] MEDS: TORADOL 30 MG VIAL IVP PRN (03:16)
[2022-04-25] MEDS: HEPARIN SODIUM IN D5W 25,000 UNITS/500 ML BAG IV PRN (04:19)
[2022-04-25] MEDS: MORPHINE SULFATE INJ 2 MG INJ IVP PRN ×2 (04:19→19:41)
[2022-04-25 05:10] LABS: BASOPHILS % (AUTO) 0.7 % (0.2-1.0); EOSINOPHILS # (AUTO) 0.1 x10^3/uL (0.0-0.2); EOSINOPHILS % (AUTO) 1.7 % (0.9-2.9); HEMOGLOBIN 8.6 g/dL (13.5-18.0); LYMPHOCYTES # (AUTO) 0.8 X10^3/uL (1.3-2.9); LYMPHOCYTES % (AUTO) 22.8 % (21.0-51.0); MEAN CORPUSCULAR HEMOGLOBIN 33.5 pg (27.0-34.0); MEAN CORPUSCULAR HGB CONC 35.9 g/dL (33.0-35.0); MEAN CORPUSCULAR VOLUME 93.3 fL (80.0-100.0); MEAN PLATELET VOLUME 8.8 fL (7.4-11.0); MONOCYTES # (AUTO) 0.4 x10^3/uL (0.3-0.8); NEUTROPHILS # (AUTO) 2.3 x10^3/uL (2.2-4.8); NEUTROPHILS % (AUTO) 63.8 % (42.0-75.0); RED BLOOD COUNT 2.58 X10^6/uL (4.7-6.0); RED CELL DISTRIBUTION WIDTH 13.7 % (11.6-16.5); WHITE BLOOD COUNT 3.6 X10^3/uL (3.6-10.0)
[2022-04-25 05:17] LABS: ALANINE AMINOTRANSFERASE 30 Units/L (12-78); ALBUMIN 2.2 g/dL (3.4-5.0); ALKALINE PHOSPHATASE 88 Units/L (46-116); ASPARTATE AMINO TRANSFERASE 23 Units/L (15-37); BLOOD UREA NITROGEN 6 mg/dL (7-18); CALCIUM 7.7 mg/dL (8.5-10.1); CHLORIDE 106 mmol/L (98-107); COR CA(FOR HYPOALB) 9.1 mg/dL (8.5-10.1); CREATININE 0.85 mg/dL (0.70-1.30); SODIUM 137 mmol/L (136-145); TOTAL PROTEIN 5.2 g/dL (6.4-8.2); eGFR NON BLACK RACES > 60 (>60)
[2022-04-25] MEDS: INVanz INJ 1 GRAM VIAL 1 G in NS 100 ML IV 100 ML IV SCH (08:31)
[2022-04-25] MEDS: PROTONIX INJ 40 MG VIAL IVP SCH ×2 (08:32→20:37)
[2022-04-25] MEDS: ZESTRIL TAB 10 MG PO SCH (08:36)
[2022-04-25] MEDS: ZYLOPRIM PO SCH (08:37)
[2022-04-25] MEDS: K-DUR TAB 20 MEQ PO PRN (08:37)
[2022-04-25] MEDS: ECOTRIN TAB 325 MG PO SCH (08:37)
[2022-04-25] MEDS: NEURONTIN CAP 300 MG PO SCH ×2 (08:37→20:36)
[2022-04-25] MEDS: LIPITOR TAB 40 MG PO SCH (08:37)
[2022-04-25] MEDS: XANAX PO PRN ×2 (08:42→20:36)
[2022-04-25] MEDS: COLACE CAP 100 MG PO SCH ×2 (09:00→21:49)
[2022-04-25] MEDS: MILK OF MAGNESIA PO SCH ×2 (09:00→21:49)
[2022-04-25] MEDS: ELIQUIS PO SCH ×2 (09:46→20:37)
[2022-04-25] MEDS: PERCOCET TAB 5/325 MG PO PRN ×3 (09:46→21:50)
[2022-04-25 14:38] LABS: BASOPHILS % (AUTO) 1.1 % (0.2-1.0); EOSINOPHILS # (AUTO) 0.1 x10^3/uL (0.0-0.2); EOSINOPHILS % (AUTO) 2.2 % (0.9-2.9); HEMATOCRIT 24.8 % (42.0-54.0); HEMOGLOBIN 8.8 g/dL (13.5-18.0); LYMPHOCYTES # (AUTO) 0.9 X10^3/uL (1.3-2.9); LYMPHOCYTES % (AUTO) 29.5 % (21.0-51.0); MEAN CORPUSCULAR HEMOGLOBIN 33.4 pg (27.0-34.0); MEAN CORPUSCULAR HGB CONC 35.6 g/dL (33.0-35.0); MEAN CORPUSCULAR VOLUME 93.8 fL (80.0-100.0); MEAN PLATELET VOLUME 8.1 fL (7.4-11.0); MONOCYTES # (AUTO) 0.4 x10^3/uL (0.3-0.8); NEUTROPHILS # (AUTO) 1.6 x10^3/uL (2.2-4.8); NEUTROPHILS % (AUTO) 53.2 % (42.0-75.0); RED BLOOD COUNT 2.64 X10^6/uL (4.7-6.0); RED CELL DISTRIBUTION WIDTH 13.5 % (11.6-16.5)
[2022-04-25] MEDS ORDERED: LEVAQUIN PREMIX IV 500 MG 500 MG/100 ML BAG IV ONE (18:11)
--- NOTE | 2022-04-25 18:19 | RAD ---
Chest single viewIndication: Cough. Heart murmur.COMPARISONNov2021FINDINGSThere is no pneumothorax, effusion or dense consolidation. Heart size is normalIMPRESSION: No acute chest process.Electronically signed by: CHERYL RODRÍGUEZ (Apr 25, 2022 18:17:09)
[2022-04-25] MEDS: RESTORIL CAP 15 MG PO PRN (20:36)
[2022-04-26] MEDS: NS 1,000 ML IV 1,000 ML IV SCH ×2 (00:53→19:06)
[2022-04-26] MEDS: VANCOMYCIN IV *PREMIX 1 G/200 ML BAG 1 G/200 ML PIGGYBACK IV SCH ×4 (04:44→20:35)
[2022-04-26 05:07] LABS: BASOPHILS % (AUTO) 0.3 % (0.2-1.0); EOSINOPHILS # (AUTO) 0.1 x10^3/uL (0.0-0.2); EOSINOPHILS % (AUTO) 2.3 % (0.9-2.9); HEMATOCRIT 26.2 % (42.0-54.0); HEMOGLOBIN 9.3 g/dL (13.5-18.0); LYMPHOCYTES # (AUTO) 0.7 X10^3/uL (1.3-2.9); LYMPHOCYTES % (AUTO) 19.2 % (21.0-51.0); MEAN CORPUSCULAR HGB CONC 35.4 g/dL (33.0-35.0); MEAN PLATELET VOLUME 8.5 fL (7.4-11.0); MONOCYTES # (AUTO) 0.5 x10^3/uL (0.3-0.8); MONOCYTES % (AUTO) 12.8 % (0.0-13.0); NEUTROPHILS # (AUTO) 2.4 x10^3/uL (2.2-4.8); NEUTROPHILS % (AUTO) 65.4 % (42.0-75.0); RED BLOOD COUNT 2.82 X10^6/uL (4.7-6.0); RED CELL DISTRIBUTION WIDTH 13.3 % (11.6-16.5); WHITE BLOOD COUNT 3.7 X10^3/uL (3.6-10.0)
[2022-04-26] MEDS: PERCOCET TAB 5/325 MG PO PRN ×3 (05:12→19:24)
[2022-04-26 05:19] LABS: ALANINE AMINOTRANSFERASE 47 Units/L (12-78); ALBUMIN 2.2 g/dL (3.4-5.0); ALKALINE PHOSPHATASE 112 Units/L (46-116); ASPARTATE AMINO TRANSFERASE 31 Units/L (15-37); BLOOD UREA NITROGEN 6 mg/dL (7-18); CARBON DIOXIDE 25.7 mmol/L (21-32); CHLORIDE 105 mmol/L (98-107); COR CA(FOR HYPOALB) 9.4 mg/dL (8.5-10.1); SODIUM 139 mmol/L (136-145); TOTAL PROTEIN 5.3 g/dL (6.4-8.2); eGFR NON BLACK RACES > 60 (>60)
[2022-04-26] MEDS: HEMOCYTE-PLUS PO SCH (09:32)
[2022-04-26] MEDS: ELIQUIS PO SCH ×2 (09:33→20:35)
[2022-04-26] MEDS: LIPITOR TAB 40 MG PO SCH (09:34)
[2022-04-26] MEDS: ZESTRIL TAB 10 MG PO SCH (09:34)
[2022-04-26] MEDS: K-DUR TAB 20 MEQ PO PRN (09:34)
[2022-04-26] MEDS: ECOTRIN TAB 325 MG PO SCH (09:34)
[2022-04-26] MEDS: ZYLOPRIM PO SCH (09:35)
[2022-04-26] MEDS: NEURONTIN CAP 300 MG PO SCH ×2 (09:35→20:35)
[2022-04-26] MEDS: PROTONIX INJ 40 MG VIAL IVP SCH ×2 (09:35→20:35)
[2022-04-26] MEDS: XANAX PO PRN ×2 (09:42→19:27)
[2022-04-26] MEDS: COLACE CAP 100 MG PO SCH ×2 (10:27→23:38)
[2022-04-26] MEDS: MILK OF MAGNESIA PO SCH ×2 (10:27→23:35)
[2022-04-26] MEDS ORDERED: XYLOCAINE 1 % (PLAIN) ONE (14:47)
[2022-04-26] MEDS ORDERED: XYLOCAINE 1 % (PLAIN) IJ ONE (15:00)
[2022-04-26] MEDS ORDERED: VERSED ONE ×2 (15:47→16:05)
--- NOTE | 2022-04-26 17:08 | DR.UPDATE ---
H&P Update Prescription drug monitoring program results: PDMP reviewed and no concerns identified Any changes to H&P?: No Patient was examined?: Yes Procedures (ALL) - Central Line Placement PCM.CLCO: written consent Time out performed: Yes Patient placed pm monitor/pulse ox: Yes MD prep: mask, gown, gloves, other Centrial line prep: chlorhexidine scrub, sterile drapes applied Local anesthsia used: lidocane 1%, other anesthetic (versed 4mg in divided doses. patient tolerated well.) Ultrasound used for placement: Yes (left basilic, brachial veins and brachial artery id'd via u/s) Central line lumen ininserted: double Post procedure: good blood return, all ports aspirated, flushed,capped, sterile dressing applied Post procedure xray: tip oc catheter in good position, no pneumothorax seen Patient tolerated procedure: Yes Complications: arterial puncture/cannulation (left brachial art cannulated. noted immediatly and cannula removed. pressure held for 15min. no hematoma/swelling. strong L radial pulse and good capillary refill noted. PCP notified. )
--- NOTE | 2022-04-26 17:22 | RAD ---
EXAM: CHEST X-RAYHISTORY: Verification of PICC line position status post PICC placement.TECHNIQUE: AP chest x-ray dated April 26, 2022 at 4:31 PMCOMPARISON: CXR dated April 25, 2022.FINDINGS:There is a left upper extremity PICC line with the distal tip in the expected location of the distal SVC (adequate position). Recommend careful clinical correlation to ensure venous blood return.The heart size and mediastinum are within normal limits. The lung currie and costophrenic angles are clear. There is no acute parenchymal infiltrate, pleural effusion, or pneumothorax seen. The visualized bony structures are within normal limits.IMPRESSION:1. Left upper extremity PICC line with the distal tip in the expected location of the distal SVC (adequate position). Recommend careful clinical correlation to ensure venous blood return.2. No evidence for acute cardiopulmonary disease seen.Electronically signed by: Garrick Asif (Apr 26, 2022 17:20:45)
[2022-04-26 19:37] LABS: CREATININE 1.06 mg/dL (0.70-1.30)
[2022-04-26 20:06] LABS: VANCOMYCIN,TROUGH 20.7 ug/mL (15-20)
[2022-04-26] MEDS: RESTORIL CAP 15 MG PO PRN (20:37)
[2022-04-27] MEDS: NS 1,000 ML IV 1,000 ML IV SCH (01:20)
[2022-04-27] MEDS: PERCOCET TAB 5/325 MG PO PRN ×2 (04:28→10:42)
[2022-04-27 04:38] LABS: CREATININE 0.87 mg/dL (0.70-1.30); VANCOMYCIN,TROUGH 19.5 ug/mL (15-20)
[2022-04-27] MEDS: VANCOMYCIN IV *PREMIX 1 G/200 ML BAG 1 G/200 ML PIGGYBACK IV SCH ×2 (04:53→10:05)
[2022-04-27 06:18] LABS: ALANINE AMINOTRANSFERASE 58 Units/L (12-78); ALBUMIN 2.4 g/dL (3.4-5.0); ALKALINE PHOSPHATASE 120 Units/L (46-116); ASPARTATE AMINO TRANSFERASE 40 Units/L (15-37); BASOPHILS # (AUTO) 0.1 X10^3/uL (0.0-0.1); BASOPHILS % (AUTO) 1.1 % (0.2-1.0); BLOOD UREA NITROGEN 7 mg/dL (7-18); CALCIUM 8.5 mg/dL (8.5-10.1); CARBON DIOXIDE 26.1 mmol/L (21-32); CHLORIDE 105 mmol/L (98-107); COR CA(FOR HYPOALB) 9.8 mg/dL (8.5-10.1); CREATININE 0.92 mg/dL (0.70-1.30); EOSINOPHILS # (AUTO) 0.1 x10^3/uL (0.0-0.2); EOSINOPHILS % (AUTO) 1.8 % (0.9-2.9); HEMATOCRIT 27.8 % (42.0-54.0); HEMOGLOBIN 9.8 g/dL (13.5-18.0); LYMPHOCYTES # (AUTO) 1.1 X10^3/uL (1.3-2.9); LYMPHOCYTES % (AUTO) 22.7 % (21.0-51.0); MEAN CORPUSCULAR HEMOGLOBIN 32.6 pg (27.0-34.0); MEAN CORPUSCULAR HGB CONC 35.1 g/dL (33.0-35.0); MEAN CORPUSCULAR VOLUME 92.9 fL (80.0-100.0); MEAN PLATELET VOLUME 8.7 fL (7.4-11.0); MONOCYTES # (AUTO) 0.6 x10^3/uL (0.3-0.8); MONOCYTES % (AUTO) 12.6 % (0.0-13.0); NEUTROPHILS % (AUTO) 61.8 % (42.0-75.0); RED CELL DISTRIBUTION WIDTH 13.3 % (11.6-16.5); SODIUM 140 mmol/L (136-145); TOTAL PROTEIN 5.7 g/dL (6.4-8.2); WHITE BLOOD COUNT 4.8 X10^3/uL (3.6-10.0); eGFR NON BLACK RACES > 60 (>60)
[2022-04-27 08:07] VITALS: BP 136/69
[2022-04-27] MEDS: ZESTRIL TAB 10 MG PO SCH (08:28)
[2022-04-27] MEDS: XANAX PO PRN (08:33)
[2022-04-27] MEDS: NEURONTIN CAP 300 MG PO SCH (08:33)
[2022-04-27] MEDS: HEMOCYTE-PLUS PO SCH (08:33)
[2022-04-27] MEDS: LIPITOR TAB 40 MG PO SCH (08:34)
[2022-04-27] MEDS: ELIQUIS PO SCH (08:34)
[2022-04-27] MEDS: ZYLOPRIM PO SCH (08:36)
[2022-04-27] MEDS: ECOTRIN TAB 325 MG PO SCH (08:43)
[2022-04-27] MEDS: PROTONIX INJ 40 MG VIAL IVP SCH (08:46)
[2022-04-27] MEDS: COLACE CAP 100 MG PO SCH (10:39)
[2022-05-02] MEDS ORDERED: ELIQUIS PO SCH (09:00)
== END 2022-04-27 11:07 | disposition home or self-care (01) | DRG 300 ==
LOC: ICU 07:31 → ER 07:31 → ICU 12:16
PROVIDERS: ADMIT Family Medicine; ATTEND Internal Medicine
DX: Z86.73 Personal history of transient ischemic attack (TIA), and cerebral infarction without residual deficits; M19.90 Unspecified osteoarthritis, unspecified site; D50.9 Iron deficiency anemia, unspecified; E87.6 Hypokalemia; E83.42 Hypomagnesemia; R06.2 Wheezing; K21.9 Gastro-esophageal reflux disease without esophagitis; I82.611 Acute embolism and thrombosis of superficial veins of right upper extremity; F41.9 Anxiety disorder, unspecified; I80.8 Phlebitis and thrombophlebitis of other sites; R78.81 Bacteremia; B95.61 Methicillin susceptible Staphylococcus aureus infection as the cause of diseases classified elsewhere; L03.113 Cellulitis of right upper limb; I10 Essential (primary) hypertension; F17.210 Nicotine dependence, cigarettes, uncomplicated